=== PATIENT | female | born 1955 | race American Indian/Alaskan Native ===

== ENCOUNTER 2017-11-05 08:26 | Emergency (ER) | payer OTHER, BC ==
[2017-11-05 08:28] VITALS: BMI 29.4
[2017-11-05 08:30] VITALS: O2SAT 100
--- NOTE | 2017-11-05 10:11 | RAD ---
PROCEDURE: Left Knee Radiographs. HISTORY: Pain. COMPARISON: None. FINDINGS: BONES: Left total knee arthroplasty. Hardware appears intact without evidence of loosening or infection. . Satisfactory alignment JOINTS: Normal. No osteoarthritis. JOINT EFFUSION: Questionable small joint effusion OTHER FINDINGS: None. IMPRESSION: No evidence of acute displaced fracture nor dislocation. Total knee arthroplasty without evidence of hardware failure. Satisfactory alignment.
--- NOTE | 2017-11-05 10:18 | ED PDOC ---
Lower Extremity Pain/Injury Time Seen by Provider: 11/05/17 09:08 Chief Complaint (Nursing): Lower Extremity Problem/Injury Chief Complaint (Provider): Left Knee Pain History Per: Patient History/Exam Limitations: no limitations Onset/Duration Of Symptoms: Other (prior to arrival) Current Symptoms Are (Timing): Still Present Additional Complaint(s): 62 y/o female with no significant pmhx, who presents for evaluation of left knee pain prior to arrival. Patient states she tripped over a drawer today at work, falling and injuring her left knee. She reports having knee replacement surgery on her left knee 12/2016. She says she did not ambulate after injury. Denies head injury or LOC. Past Medical History Reviewed: Historical Data, Nursing Documentation, Vital Signs Vital Signs: Last Vital Signs Temp 98.2 F 11/05/17 08:28 Pulse 76 11/05/17 08:28 Resp 20 11/05/17 08:28 BP 135/89 11/05/17 08:28 Pulse Ox 100 11/05/17 08:28 - Medical History PMH: Arthritis, HTN Denies: Chronic Kidney Disease - Surgical History Surgical History: No Surg Hx - Family History Family History: States: Unknown Family Hx - Home Medications Home Medications: Ambulatory Orders Medication Instructions Recorded Ibuprofen [Motrin] 600 mg PO Q6H PRN #20 tab 11/05/17 - Allergies Allergies/Adverse Reactions: Allergies Allergy/AdvReac Type Severity Reaction Status Date / Time No Known Allergies Allergy Verified 11/05/17 08:45 Review of Systems ROS Statement: Except As Marked, All Systems Reviewed And Found Negative Musculoskeletal: Positive for: Leg Pain (left knee) Physical Exam - Reviewed Nursing Documentation Reviewed: Yes Vital Signs Reviewed: Yes - Physical Exam Appears: Positive for: Non-toxic, No Acute Distress Extremity: Positive for: Normal ROM, Other (superficial abrasion to anterior left knee, no erythema). Negative for: Deformity Neurologic/Psych: Positive for: Alert, Oriented - ECG O2 Sat by Pulse Oximetry: 100 (RA) Pulse Ox Interpretation: Normal Medical Decision Making Medical Decision Makin:34 Impression: Left knee injury Plan: --Left Knee X-Ray --Reevaluation Accession No. : [id number] Patient Name / ID : ROCAEL FAYE / [id number] Exam Date : 11/05/2017 09:39:43 ( Approved ) Study Comment : Sex / Age : F / 62Y Creator : Young Hunt MD Dictator : Fall Intern : Vending Machine Repairer : Young Hunt MD Approver2 : Report Date : 11/05/2017 10:10:10 My Comment : PROCEDURE: Left Knee Radiographs. HISTORY: Pain. COMPARISON: None. FINDINGS: BONES: Left total knee arthroplasty. Hardware appears intact without evidence of loosening or infection. . Satisfactory alignment JOINTS: Normal. No osteoarthritis. JOINT EFFUSION: Questionable small joint effusion OTHER FINDINGS: None. IMPRESSION: No evidence of acute displaced fracture nor dislocation. Total knee arthroplasty without evidence of hardware failure. Satisfactory alignment. Scribe Attestation: Documented by Jesse Baer, acting as a scribe for Desi Edmond MD. Provider Scribe Attestation: All medical record entries made by the Scribe were at my direction and personally dictated by me. I have reviewed the chart and agree that the record accurately reflects my personal performance of the history, physical exam, medical decision making, and the department course for this patient. I have also personally directed, reviewed, and agree with the discharge instructions and disposition. Disposition - Clinical Impression Clinical Impression: Knee contusion - Disposition Disposition: Routine/Home Disposition Time: 11:11 Condition: STABLE Additional Instructions: FOLLOW-UP WITH [facility] FOR REEVALUATION. Prescriptions: Ibuprofen [Motrin] 600 mg PO Q6H PRN #20 tab PRN Reason: Pain, Moderate (4-7) Instructions: Contusion (DC) Forms: [facility] ([place]z), [facility] ED School/Work Excuse
[2017-11-05 11:54] VITALS: BP 122/75; PULSE 74; RESP 16; TEMP 98
== END 2017-11-05 11:54 | disposition home or self-care (01) ==
LOC: H.ER 08:26
DX: S80.02XA Contusion of left knee, initial encounter (principal); I10 Essential (primary) hypertension